=== PATIENT | female | born 1940 | race Caucasian/White ===

== ENCOUNTER 2016-08-22 05:38 | Inpatient (IN) | payer OTHER ==
[2016-08-18 10:29] LABS: BASOPHILS 0.6 %; BASOPHILS ABSOLUTE 0.06 10/3/uL (0.0-0.16); EOSINOPHILS 3.1 %; HEMOGLOBIN 9.8 g/dL (12.0-16.0); IMMATURE GRANULOCYTES 0.3 %; IMMATURE GRANULOCYTES ABSOLUTE 0.03 10/3/uL (0.0-0.11); LYMPHOCYTES 25.7 %; LYMPHOCYTES ABSOLUTE 2.46 10/3/uL (0.67-4.30); MEAN PLATELET VOLUME 9.1 fL (9.2-13.0); MONOCYTES 6.1 %; MONOCYTES ABSOLUTE 0.58 10/3/uL (0.21-1.20); NEUTROPHILS 64.2 %; NEUTROPHILS ABSOLUTE 6.15 10/3/uL (2.02-8.40); PLATELET COUNT 292 10/3/uL (150-400); RBC DISTRIBUTION WIDTH 16.8 % (12.0-16.0); RED CELL COUNT 4.58 10/6/uL (4.0-5.6); WHITE BLOOD CELLS 9.6 10/3/uL (4.5-10.5)
[2016-08-18 10:30] LABS: MANUAL DIFF NO %; MEAN CORPUS HGB CONC 29.7 g/dL (32.0-36.0); MEAN CORPUSCULAR HEMOGLOB 21.4 pg (26.0-34.0); MEAN CORPUSCULAR VOLUME 72.1 fL (80-100)
[2016-08-18 10:38] LABS: PROTIME (NOT ORD) 13.5 SEC (12.0-14.5)
[2016-08-18 10:44] LABS: ALBUMIN 3.6 G/DL (3.5-5.0); ALKALINE PHOSPHATASE 103 U/L (45-117); BUN (BLOOD UREA NITROGEN) 21 MG/DL (6-23); CALCIUM, SERUM 8.6 MG/DL (8.5-10.4); CHLORIDE, SERUM 105 MMOL/L (96-112); CO2 (CARBON DIOXIDE) 29 MMOL/L (24-34); CREATININE 0.77 MG/DL (0.55-1.02); GFR AFRICAN AMERICAN 88 ML/MIN (>=60); GFR NON AFRICAN AMERICAN 76 ML/MIN (>=60); GLOBULIN 3.5 G/DL (2.5-4.1); SGOT(AST) 8 U/L (5-40); SGPT(ALT) 14 U/L (5-65); SODIUM, SERUM 141 MMOL/L (135-148); TOTAL BILIRUBIN 0.2 MG/DL (0-1.2); TOTAL PROTEIN 7.1 G/DL (6.0-8.5)
[2016-08-18 10:45] LABS: GLUCOSE, SERUM 96 MG/DL (60-99)
[2016-08-18 10:49] LABS: CEA 2.2 NG/ML
[2016-08-18 11:15] LABS: ASCORBIC ACID (UR NOT ORDER) NEG (NEG); BILIRUBIN, URINE NEGATIVE (NEG); KETONE, URINE NEGATIVE (NEG); LEUKOCYTE ESTERASE(NOT OR NEG (NEG); WBC (NOT ORDERED) (RFLEX) 1 (0-5)
[2016-08-18 12:09] LABS: PLATELET ESTIMATE ADQ (ADEQUATE)
--- NOTE | ~2016-08-22 | OP ---
Record Of Operation [facility] [address] [place]. [address] NAME: DOMO MCKENZIE : 42 STATUS : ADM IN PAT#: [id number] AGE: 76 ADM/REG DATE : 08/22/16 MR#: [id number] REPORT SERV DATE: 08/22/16 DICTATED BY: LINA SIDDIQUI JR. DATE: 08/22/16 REPORT STATUS : Draft TRANSCRIBED BY: MODL DATE: 08/22/16 DATE OF PROCEDURE: 08/22/2016 SURGEON: Lina Siddiqui M.D. WHEEL TRUING MACHINE TENDER: Bella Godwin. PROCEDURES: Right colectomy with ileocolostomy, repair of ventral hernia, and wedge biopsy of liver. PREOPERATIVE DIAGNOSIS: Carcinoma of the colon. POSTOPERATIVE DIAGNOSIS: Carcinoma of the colon with umbilical hernia and hepatic lesion. ANESTHESIA: General. INDICATIONS: This patient had been found to have a carcinoma of the colon at the hepatic flexure. Imaging did show a lesion of the liver thought to be probably a cystic lesion. She had a previous cholecystectomy. Exploration for resection of the colon was undertaken along with assessment of the liver with intraoperative ultrasound for staging purposes. FINDINGS: During the entrance in the abdomen, there were multiple ventral hernia defects along the midline. These will be repaired primarily after the fascia and excision of the hernia sac at the conclusion of the case. Intraoperatively, there were multiple adhesions seen, fresh adhesions to the undersurface of the liver. These were taken down. The tumor mass was located in the hepatic flexure. There did not appear to be any evidence of external penetration and no evidence of any peritoneal disease. The liver did not have obvious tumor palpable. Ultrasound was performed by Dr. Blake and dictated separately but does show apparent cystic lesion in the central portion of the liver. There was also additional indeterminate lesion of the left lateral lobe and this was excised as a wedge excision with no evident tumor and final diagnosis deferred to permanent section. The right colectomy was performed and this allowed complete removal of the tumor. DESCRIPTION OF PROCEDURE: With adequate general anesthesia, the patient was placed in supine position. The abdomen was prepped and draped sterilely. A midline incision was made. The dissection was carried down sharply through the subcutaneous tissues. The fascia and perineum were divided. Underlying adhesions were dissected sharply and hernia sacs were identified and excised from the surrounding tissues. Then, the adhesions were taken down sharply including the adhesions to the undersurface of the liver. Bleeding was controlled with electrocautery and the right colon was mobilized by dividing its lateral peritoneal attachments. Then, the ultrasound was performed as noted. With the presence of lesion in the left lateral lobe superficially, it was felt a wedge biopsy would be appropriate. Therefore, the liver was scored with the electrocautery and a simple wedge of tissue at the site of the abnormality was excised. This was ultrasounded and appeared to contain the abnormality and this was submitted to Pathology. Bleeding was controlled with electrocautery and also with liver sutures of chromic and Surgiflo. Then, the colectomy was Record Of Operation [address] [address] NAME: DOMO MCKENZIE : 42 STATUS : ADM IN PAT#: [id number] AGE: 76 ADM/REG DATE : 08/22/16 MR#: [id number] REPORT SERV DATE: 08/22/16 DICTATED BY: LINA SIDDIQUI JR. DATE: 08/22/16 REPORT STATUS : Draft TRANSCRIBED BY: MICHELLE DATE: 08/22/16 performed. The terminal ileum and the transverse colon were divided with DOTTY 75 and then wide resection measures were undertaken, securing any small bleeders with the Enseal device and the major vessels with ligatures of silk. Then, a [id number] functional and end- ileocolostomy was created with DOTTY 75. The open end was closed with a DOTTY 60 and this was reinforced with a suture of 3-0 silk. Additionally, the measured defect was closed with suture of 3-0 silk. The abdomen was irrigated with copious amounts of saline. Hemostasis was assured. The wound was then closed, fascial layer with 0 PDS, subcutaneous 3-0 Vicryl, and subcuticular Monocryl. An overlay negative pressure dressing was placed. The patient left the operating room in satisfactory condition. ESTIMATED BLOOD LOSS: 100 mL. KAEL/MICHELLE Lina Siddiqui Jr., M.D. / [id number] CC: Lina Siddiqui Jr., M.D.
--- NOTE | ~2016-08-22 | HP ---
History And Physical [address] [place]. [address] NAME: DOMO MCKEZNIE : 42 STATUS : ADM IN PAT#: [id number] AGE: 76 ADM/REG DATE : 08/22/16 MR#: [id number] REPORT SERV DATE: 08/22/16 DICTATED BY: LINA XIE JR. DATE: 08/22/16 REPORT STATUS : Draft TRANSCRIBED BY: MODNaga DATE: 08/22/16 DATE OF ADMISSION: 08/22/2016 CHIEF COMPLAINT: Colon cancer. HISTORY OF PRESENT ILLNESS: This is a 76-year-old female. She had been found to have an adenocarcinoma of the ascending colon on a screening colonoscopy. A partially circumferential mass was seen for which a biopsy confirmed carcinoma. CT did not show clear evidence of metastatic disease. There was a lesion that was thought to be probably a cyst. She does have a history of breast cancer, but no history of polyps, familial polyposis, or family history of colon cancer. PAST MEDICAL HISTORY: Remarkable for history of hypertension, COPD, history of breast cancer, skin cancer, and arthritis. ALLERGIES: NONE. FAMILY HISTORY: Negative. SOCIAL HISTORY: Tobacco history of use, none currently. Alcohol none. MEDICATIONS: Listed and reviewed. SURGICAL HISTORY: Remarkable for cholecystectomy open, knee replacement, and tonsillectomy. REVIEW OF SYSTEMS: Positive findings of some cough and wheezing. HEENT: Otherwise negative. GENERAL: Negative. HEART: Some shortness of breath and extremity swelling. GI: Some diarrhea and heartburn. MUSCULOSKELETAL: Back pain. Joint pain. : Negative. ENDOCRINE: Negative. IMMUNOLOGIC: Negative. PSYCHIATRIC: Negative. PHYSICAL EXAMINATION: GENERAL: Shows a healthy-appearing female who is in no acute distress. HEAD AND NECK EXAM: Pupils equal, round, and reactive. No icteric changes. Mucous membranes are moist. NECK: Supple. There is no mass or thyromegaly. LUNGS: Clear bilaterally. CARDIOVASCULAR: Shows normal S1 and S2 without murmur. BREASTS: Showed these are asymmetric. Right breast shows retraction and radiation change and a lumpectomy scar. History And Physical [address] [place]. [address] NAME: DOMO MCKEZNIE : 42 STATUS : ADM IN PAT#: [id number] AGE: 76 ADM/REG DATE : 08/22/16 MR#: [id number] REPORT SERV DATE: 08/22/16 DICTATED BY: LINA XIE JR. DATE: 08/22/16 REPORT STATUS : Draft TRANSCRIBED BY: MICHELLE DATE: 08/22/16 ABDOMEN: Soft, nontender. There is a healed incision. There is no mass or hepatomegaly. EXTREMITIES: Show no clubbing. There is some mild edema. IMAGES: Reviewed. IMPRESSION: Carcinoma of colon. PLAN: We will proceed with admission in preparation for right colectomy and intraoperative assessment of the liver. KAEL/MICHELLE Lina Xie Jr., M.D. / [id number]
--- NOTE | ~2016-08-22 | DS ---
Discharge Summary [facility] [address] [place]. [address] NAME: DOMO MCKENZIE : 42 STATUS : DIS IN PAT#: [id number] AGE: 76 ADM/REG DATE : 08/22/16 MR#: [id number] REPORT SERV DATE: 09/03/16 DICTATED BY: LINA SIDDIQUI JR. DATE: 09/02/16 REPORT STATUS : Draft TRANSCRIBED BY: MICHELLE DATE: 09/02/16 Data Collection from hospitalization DISCHARGE DIAGNOSES: 1. Carcinoma of the colon. 2. Umbilical hernia. 3. Hepatic lesion. 4. Hypertension. 5. Chronic obstructive pulmonary disease. 6. History of breast cancer. 7. History of skin cancer. 8. Arthritis. CONSULTATIONS: None. PROCEDURES PERFORMED: 1. Right colectomy with ileocolostomy and repair of ventral hernia and wedge biopsy of liver on 08/22/2016. 2. Abdominal ultrasound on 08/22/2016. PATHOLOGY: Liver wedge resection - 1 mm bile duct adenoma, margins free, several 1-1.7 mm calcified fibrotic nodules, mild steatosis, terminal ileum and colon, right colectomy - colonic adenocarcinoma. Soft tissue, hernia repair - hernia sac, omentum resection and large bowel segmental resection. Omentum - no tumor seen. Large bowel - normal, five additional benign lymph nodes. MEDICATIONS: Tylenol 500 mg every six hours as needed, ProAir two puffs via inhaler as needed, vitamin C two tablets daily, Lomotil 2.5 mg three times a day as needed, Mobic 7.5 mg daily, Lopressor 50 mg twice a day, Percocet 5/325 one tablet every six hours as needed, Maxzide one tablet twice a day, and ferrous sulfate one tablet three times a day as instructed. CONDITION AT DISCHARGE: Stable. DISPOSITION: The patient was discharged home on a soft diet with activities as instructed. She would follow up with me on 08/30/2016. HOSPITAL COURSE: This is a 76-year-old female who was found to have carcinoma of the colon at the hepatic flexure. Imaging showed a lesion of the liver, thought to be probably a cystic lesion. She had a previous cholecystectomy. Exploration for resection of the colon was undertaken along with assessment of the liver with intraoperative ultrasound for staging purposes. The patient agreed to proceed and was admitted to the hospital for further evaluation and treatment. Upon admission, she was taken to the operating room where she underwent the above-mentioned procedure. She tolerated this well, and there were no complications. She had also undergone an intraoperative ultrasound of the liver. Postop day #1, she was stable. Her pain was well controlled with the PRODUCTION ESTIMATOR. Her abdomen was soft. She had no nausea or Discharge Summary [address] [address] NAME: DOMO MCKENZIE : 42 STATUS : DIS IN PAT#: [id number] AGE: 76 ADM/REG DATE : 08/22/16 MR#: [id number] REPORT SERV DATE: 09/03/16 DICTATED BY: LINA SIDDIQUI JR. DATE: 09/02/16 REPORT STATUS : Draft TRANSCRIBED BY: MICHELLE DATE: 09/02/16 vomiting. We encouraged her to increase her activity. Clear liquids were started. On 08/24/2016, she still had some pain. She was tolerating clear liquids. She has not had a bowel movement. Her diet was advanced. The PRODUCTION ESTIMATOR was discontinued. She continued to do well. Discharge planning was performed. On 08/26/2016, she was progressing satisfactorily. She was having bowel movements. She was tolerating oral intake. Discharge instructions were given. Due to her improved and stable condition, she was discharged home with the above-stated instructions. Information collected by: Kat Davidson I submit the above information as my discharge summary. JOHN/MICHELLE Lina Siddiqui Jr., M.D. / [id number] CC: Singh Watson Jr., M.D.
[~2016-08-22 05:38] MED LIST: ACET500CAP PO; BREO ELLIPTA INH; C5; FESO4 PO; LOM PO; LOMOTIL; LOP50 PO; Lomotil; MAX25 PO; MELOXICAM; METOPROLOL; MOBIC7.5 PO; MVI PO; PCET PO; PROAIR HFA INH; TRIAMTERENE-HCTZ; ZOCOR10 PO; ZOCOR20 PO
[2016-08-22 11:19] LABS: BASOPHILS 0.2 %; BASOPHILS ABSOLUTE 0.04 10/3/uL (0.0-0.16); EOSINOPHILS 0.1 %; EOSINOPHILS ABSOLUTE 0.03 10/3/uL (0.0-0.53); HEMATOCRIT 30.2 % (36.0-48.0); HEMOGLOBIN 9.2 g/dL (12.0-16.0); IMMATURE GRANULOCYTES 0.5 %; IMMATURE GRANULOCYTES ABSOLUTE 0.12 10/3/uL (0.0-0.11); LYMPHOCYTES ABSOLUTE 1.98 10/3/uL (0.67-4.30); MEAN CORPUS HGB CONC 30.5 g/dL (32.0-36.0); MEAN CORPUSCULAR HEMOGLOB 21.8 pg (26.0-34.0); MEAN CORPUSCULAR VOLUME 71.6 fL (80-100); MEAN PLATELET VOLUME 9.4 fL (9.2-13.0); MONOCYTES ABSOLUTE 0.45 10/3/uL (0.21-1.20); NEUTROPHILS 88.2 %; NEUTROPHILS ABSOLUTE 19.45 10/3/uL (2.02-8.40); PLATELET COUNT 326 10/3/uL (150-400); RBC DISTRIBUTION WIDTH 16.6 % (12.0-16.0); RED CELL COUNT 4.22 10/6/uL (4.0-5.6)
[2016-08-22 11:23] LABS: MANUAL DIFF NO %; WHITE BLOOD CELLS 22.1 10/3/uL (4.5-10.5)
[2016-08-22 11:32] LABS: BUN (BLOOD UREA NITROGEN) 20 MG/DL (6-23); CALCIUM, SERUM 8.1 MG/DL (8.5-10.4); CHLORIDE, SERUM 101 MMOL/L (96-112); CO2 (CARBON DIOXIDE) 26 MMOL/L (24-34); CREATININE 0.87 MG/DL (0.55-1.02); GFR AFRICAN AMERICAN 76 ML/MIN (>=60); GFR NON AFRICAN AMERICAN 65 ML/MIN (>=60); POTASSIUM, SERUM 3.5 MMOL/L (3.5-5.3); SODIUM, SERUM 138 MMOL/L (135-148)
[2016-08-22 11:37] LABS: GLUCOSE, SERUM 178 MG/DL (60-99)
[2016-08-22 11:40] LABS: PLATELET ESTIMATE ADQ (ADEQUATE)
[2016-08-22 11:41] LABS: OVALOCYTES 1+ (3-10/OIF) (0-2/OIF)
[2016-08-23 06:19] LABS: BASOPHILS 0 %; EOSINOPHILS 0 %; HEMOGLOBIN 7.9 g/dL (12.0-16.0); IMMATURE GRANULOCYTES 0.2 %; IMMATURE GRANULOCYTES ABSOLUTE 0.03 10/3/uL (0.0-0.11); LYMPHOCYTES 7.8 %; LYMPHOCYTES ABSOLUTE 1.14 10/3/uL (0.67-4.30); MEAN CORPUS HGB CONC 29.7 g/dL (32.0-36.0); MEAN CORPUSCULAR HEMOGLOB 21.5 pg (26.0-34.0); MEAN CORPUSCULAR VOLUME 72.3 fL (80-100); MEAN PLATELET VOLUME 9.9 fL (9.2-13.0); MONOCYTES 9.6 %; MONOCYTES ABSOLUTE 1.39 10/3/uL (0.21-1.20); NEUTROPHILS 82.4 %; NEUTROPHILS ABSOLUTE 11.97 10/3/uL (2.02-8.40); PLATELET COUNT 273 10/3/uL (150-400); RBC DISTRIBUTION WIDTH 16.4 % (12.0-16.0); RED CELL COUNT 3.68 10/6/uL (4.0-5.6); WHITE BLOOD CELLS 14.5 10/3/uL (4.5-10.5)
[2016-08-23 06:20] LABS: HEMATOCRIT 26.6 % (36.0-48.0); MANUAL DIFF NO %
[2016-08-23 06:38] LABS: CHLORIDE, SERUM 104 MMOL/L (96-112); CO2 (CARBON DIOXIDE) 29 MMOL/L (24-34); CREATININE 0.71 MG/DL (0.55-1.02); GFR AFRICAN AMERICAN 97 ML/MIN (>=60); GFR NON AFRICAN AMERICAN 83 ML/MIN (>=60); POTASSIUM, SERUM 3.8 MMOL/L (3.5-5.3); SGOT(AST) 80 U/L (5-40); SGPT(ALT) 83 U/L (5-65); SODIUM, SERUM 140 MMOL/L (135-148); TOTAL BILIRUBIN 0.3 MG/DL (0-1.2); TOTAL PROTEIN 5.7 G/DL (6.0-8.5)
[2016-08-23 06:40] LABS: A/G RATIO 0.9 (0.7-1.9); ALBUMIN 2.7 G/DL (3.5-5.0); ALKALINE PHOSPHATASE 82 U/L (45-117); BUN (BLOOD UREA NITROGEN) 15 MG/DL (6-23); GLUCOSE, SERUM 128 MG/DL (60-99)
[2016-08-23 06:46] LABS: PLATELET ESTIMATE ADQ (ADEQUATE)
[2016-08-23 06:47] LABS: TOXIC GRANULATION SLT
[2016-08-24 07:15] LABS: BASOPHILS 0.2 %; BASOPHILS ABSOLUTE 0.03 10/3/uL (0.0-0.16); EOSINOPHILS 0.3 %; EOSINOPHILS ABSOLUTE 0.05 10/3/uL (0.0-0.53); HEMATOCRIT 26.4 % (36.0-48.0); HEMOGLOBIN 7.9 g/dL (12.0-16.0); IMMATURE GRANULOCYTES 0.4 %; IMMATURE GRANULOCYTES ABSOLUTE 0.07 10/3/uL (0.0-0.11); LYMPHOCYTES 9.7 %; LYMPHOCYTES ABSOLUTE 1.59 10/3/uL (0.67-4.30); MEAN CORPUS HGB CONC 29.9 g/dL (32.0-36.0); MEAN CORPUSCULAR HEMOGLOB 21.9 pg (26.0-34.0); MEAN CORPUSCULAR VOLUME 73.3 fL (80-100); MEAN PLATELET VOLUME 9.8 fL (9.2-13.0); MONOCYTES 8.3 %; MONOCYTES ABSOLUTE 1.36 10/3/uL (0.21-1.20); NEUTROPHILS 81.1 %; NEUTROPHILS ABSOLUTE 13.24 10/3/uL (2.02-8.40); PLATELET COUNT 313 10/3/uL (150-400); RBC DISTRIBUTION WIDTH 16.9 % (12.0-16.0); WHITE BLOOD CELLS 16.3 10/3/uL (4.5-10.5)
[2016-08-24 07:21] LABS: MANUAL DIFF NO %
[2016-08-24 07:29] LABS: BUN (BLOOD UREA NITROGEN) 16 MG/DL (6-23); CALCIUM, SERUM 8.1 MG/DL (8.5-10.4); CHLORIDE, SERUM 101 MMOL/L (96-112); CO2 (CARBON DIOXIDE) 28 MMOL/L (24-34); CREATININE 0.67 MG/DL (0.55-1.02); GFR AFRICAN AMERICAN 100 ML/MIN (>=60); GFR NON AFRICAN AMERICAN 86 ML/MIN (>=60); GLUCOSE, SERUM 145 MG/DL (60-99); POTASSIUM, SERUM 4.1 MMOL/L (3.5-5.3); SODIUM, SERUM 136 MMOL/L (135-148)
[2016-08-24 08:13] LABS: ELLIPTOCYTES 1+ (3-10/OIF) (0-2/OIF)
[2016-08-25 07:10] LABS: BASOPHILS 0.4 %; BASOPHILS ABSOLUTE 0.04 10/3/uL (0.0-0.16); EOSINOPHILS 2.9 %; EOSINOPHILS ABSOLUTE 0.32 10/3/uL (0.0-0.53); HEMATOCRIT 24.6 % (36.0-48.0); HEMOGLOBIN 7.3 g/dL (12.0-16.0); IMMATURE GRANULOCYTES 0.4 %; IMMATURE GRANULOCYTES ABSOLUTE 0.04 10/3/uL (0.0-0.11); LYMPHOCYTES 13.2 %; LYMPHOCYTES ABSOLUTE 1.44 10/3/uL (0.67-4.30); MEAN CORPUS HGB CONC 29.7 g/dL (32.0-36.0); MEAN CORPUSCULAR HEMOGLOB 21.9 pg (26.0-34.0); MEAN CORPUSCULAR VOLUME 73.7 fL (80-100); MEAN PLATELET VOLUME 9.5 fL (9.2-13.0); MONOCYTES 10.3 %; MONOCYTES ABSOLUTE 1.13 10/3/uL (0.21-1.20); NEUTROPHILS 72.8 %; NEUTROPHILS ABSOLUTE 7.96 10/3/uL (2.02-8.40); PLATELET COUNT 249 10/3/uL (150-400); RBC DISTRIBUTION WIDTH 16.8 % (12.0-16.0); RED CELL COUNT 3.34 10/6/uL (4.0-5.6); WHITE BLOOD CELLS 10.9 10/3/uL (4.5-10.5)
[2016-08-25 07:12] LABS: MANUAL DIFF NO %
[2016-08-25 07:28] LABS: A/G RATIO 0.8 (0.7-1.9); ALBUMIN 2.5 G/DL (3.5-5.0); ALKALINE PHOSPHATASE 71 U/L (45-117); CALCIUM, SERUM 8.2 MG/DL (8.5-10.4); CHLORIDE, SERUM 106 MMOL/L (96-112); CO2 (CARBON DIOXIDE) 31 MMOL/L (24-34); CREATININE 0.61 MG/DL (0.55-1.02); GFR AFRICAN AMERICAN 103 ML/MIN (>=60); GFR NON AFRICAN AMERICAN 89 ML/MIN (>=60); POTASSIUM, SERUM 4.2 MMOL/L (3.5-5.3); SGOT(AST) 17 U/L (5-40); SGPT(ALT) 51 U/L (5-65); SODIUM, SERUM 141 MMOL/L (135-148); TOTAL BILIRUBIN 0.2 MG/DL (0-1.2); TOTAL PROTEIN 5.5 G/DL (6.0-8.5)
[2016-08-25 07:29] LABS: BUN (BLOOD UREA NITROGEN) 11 MG/DL (6-23); GLUCOSE, SERUM 106 MG/DL (60-99)
[2016-08-25 07:30] LABS: MICROCYTES 1+ (5-10/OIF) (0-5/OIF); OVALOCYTES 1+ (3-10/OIF) (0-2/OIF); PLATELET ESTIMATE ADQ (ADEQUATE); RBC MORPHOLOGY ABN (NORMAL)
[2016-08-26 05:55] LABS: A/G RATIO 0.7 (0.7-1.9); ALBUMIN 2.3 G/DL (3.5-5.0); ALKALINE PHOSPHATASE 70 U/L (45-117); BASOPHILS 0.4 %; BASOPHILS ABSOLUTE 0.05 10/3/uL (0.0-0.16); BUN (BLOOD UREA NITROGEN) 9 MG/DL (6-23); CALCIUM, SERUM 8.2 MG/DL (8.5-10.4); CHLORIDE, SERUM 106 MMOL/L (96-112); CO2 (CARBON DIOXIDE) 30 MMOL/L (24-34); CREATININE 0.58 MG/DL (0.55-1.02); EOSINOPHILS 2.8 %; EOSINOPHILS ABSOLUTE 0.33 10/3/uL (0.0-0.53); GFR AFRICAN AMERICAN 105 ML/MIN (>=60); GFR NON AFRICAN AMERICAN 90 ML/MIN (>=60); GLOBULIN 3.2 G/DL (2.5-4.1); GLUCOSE, SERUM 92 MG/DL (60-99); HEMATOCRIT 24.3 % (36.0-48.0); HEMOGLOBIN 7.3 g/dL (12.0-16.0); IMMATURE GRANULOCYTES 0.3 %; IMMATURE GRANULOCYTES ABSOLUTE 0.03 10/3/uL (0.0-0.11); LYMPHOCYTES 12.7 %; LYMPHOCYTES ABSOLUTE 1.47 10/3/uL (0.67-4.30); MEAN CORPUSCULAR HEMOGLOB 21.9 pg (26.0-34.0); MEAN PLATELET VOLUME 9.5 fL (9.2-13.0); MONOCYTES 8.5 %; MONOCYTES ABSOLUTE 0.98 10/3/uL (0.21-1.20); NEUTROPHILS 75.3 %; NEUTROPHILS ABSOLUTE 8.73 10/3/uL (2.02-8.40); PLATELET COUNT 271 10/3/uL (150-400); RBC DISTRIBUTION WIDTH 16.7 % (12.0-16.0); RED CELL COUNT 3.33 10/6/uL (4.0-5.6); SGOT(AST) 12 U/L (5-40); SGPT(ALT) 42 U/L (5-65); SODIUM, SERUM 143 MMOL/L (135-148); TOTAL BILIRUBIN 0.2 MG/DL (0-1.2); TOTAL PROTEIN 5.5 G/DL (6.0-8.5); WHITE BLOOD CELLS 11.6 10/3/uL (4.5-10.5)
[2016-08-26 06:00] LABS: MANUAL DIFF NO %
[2016-08-26 06:17] LABS: PLATELET ESTIMATE ADQ (ADEQUATE)
[2016-08-26 06:18] LABS: ELLIPTOCYTES 1+ (3-10/OIF) (0-2/OIF)
[2016-08-26] MEDS ORDERED: PCET PO (09:31)
[2016-08-26] MEDS ORDERED: VITC500 PO (09:33)
[2016-08-26] MEDS ORDERED: FESO4 PO (09:34)
== END 2016-08-26 11:48 | disposition home or self-care (01) | DRG 331 ==
LOC: SDC/OF 05:38 → PACU 10:51 → 5SO 12:12
PROVIDERS: Specialist
PROC: 0WQF0ZZ Repair Abdominal Wall, Open Approach (ICD-10-PCS; 2016-08-22)
PROC: 0FB00ZX Excision of Liver, Open Approach, Diagnostic (ICD-10-PCS; 2016-08-22)
PROC: 3E0T3CZ (ICD-10-PCS; 2016-08-22)
PROC: 0DBK0ZZ Excision of Ascending Colon, Open Approach (ICD-10-PCS; principal; 2016-08-22 07:45)
DX: C18.3 Malignant neoplasm of hepatic flexure (principal); J44.9 Chronic obstructive pulmonary disease, unspecified; K76.0 Fatty (change of) liver, not elsewhere classified; K42.9 Umbilical hernia without obstruction or gangrene; Z85.3 Personal history of malignant neoplasm of breast; I10 Essential (primary) hypertension; M19.90 Unspecified osteoarthritis, unspecified site; E66.9 Obesity, unspecified; Z68.35 Body mass index [BMI] 35.0-35.9, adult; Z79.899 Other long term (current) drug therapy; Z87.891 Personal history of nicotine dependence; Z90.49 Acquired absence of other specified parts of digestive tract; Z98.890 Other specified postprocedural states
CPT/HCPCS: 36415; 71020; 76705; 76998; 80048; 80053; 81001; 82378; 83735; 85025; 85610; 85730; 86850; 86900; 86901; 88302; 88307; 88309; 88313; 88341; 88342; 93005; 94640; A9270-GY; J0360; J0690; J2250; J2270; J2405; J2710; J2795; J3010; P9045